=== PATIENT | male | born 1950 ===

== ENCOUNTER 2020-05-18 06:39 | Day surgery (SDC) | payer OTHER | END 2020-05-18 14:00 | disposition home or self-care (01) | LOC: AMB-ENDOS 06:39 → EDBD 14:15 | PROVIDERS: ATTEND Colon & Rectal Surgery | DX: D12.3 Benign neoplasm of transverse colon (principal); D12.4 Benign neoplasm of descending colon; K64.2 Third degree hemorrhoids; Z20.822 Contact with and (suspected) exposure to COVID-19 ==